=== PATIENT | female | born 1965 | race Caucasian/White ===

== ENCOUNTER 2022-01-08 10:25 | Outpatient (CLI) | payer BC, SELFPAY ==
--- NOTE | 2022-01-08 11:00 | CRLHL7_ITS ---
For Patients: As a result of the Century Cures Act, medical imaging exams and procedure reports are released immediately into your electronic medical record. You may view this report before your referring provider. If you have questions, please contact your health care provider. CLINICAL HISTORY: Postmenopausal bleeding TECHNIQUE: Real time, grimes scale images were acquired of the pelvis using a transabdominal and transvaginal approach. Color Doppler analysis was performed of the ovaries. FINDINGS: Uterus measures 6.3 x 3.1 x 3.9 centimeters endometrium is thickened measuring 1.7 cm. There is hyperechoic rounded area near the fundus measuring approximately 2.1 centimeters the endometrium is heterogeneous in appearance. This raises the possibility of a polyp. Ovaries are unremarkable. The right ovary measures 2.7 x 1.4 x 2 centimeters left ovary measures 2.6 x 1.6 x 1.7 cm. IMPRESSION: 1. Thickened endometrium measuring 1.7 centimeters heterogeneous appearance to the endometrium with rounded hyperechoic area near the fundus measuring 2.1 centimeters which raises possibility of a polyp. Dictated by Vero Gonzales MD @ 01/10/2022 8:06:30 PM (Electronically Signed)
== END 2022-01-08 10:26 | disposition home or self-care (01) ==
LOC: US 10:26
PROVIDERS: PCP Emergency Medicine; Visit Provider Obstetrics & Gynecology
DX: N95.0 Postmenopausal bleeding (principal); R93.89 Abnormal findings on diagnostic imaging of other specified body structures
CPT/HCPCS: 76830; 76856

== ENCOUNTER 2022-02-15 10:22 | Outpatient (CLI) | payer BC, SELFPAY | END 2022-02-15 10:23 | disposition home or self-care (01) | LOC: LKVREF 02-17 09:07 | PROVIDERS: PCP Emergency Medicine; Visit Provider Family Medicine | DX: R50.9 Fever, unspecified (principal); R05.9 Cough, unspecified; R30.0 Dysuria | CPT/HCPCS: 87086; 87186 ==

== ENCOUNTER 2022-04-20 10:50 | Outpatient (CLI) | payer BC, SELFPAY | END 2022-04-20 10:51 | disposition home or self-care (01) | LOC: NFLDREF 04-22 14:02 | PROVIDERS: PCP Emergency Medicine; Referring Provider Emergency Medicine; Visit Provider Physician Assistant Medical | DX: N39.0 Urinary tract infection, site not specified (principal) | CPT/HCPCS: 87086; 87186 ==

== ENCOUNTER 2022-05-13 11:33 | Outpatient (CLI) | payer BC, SELFPAY | END 2022-05-13 11:34 | disposition home or self-care (01) | LOC: LKVREF 11:34 | PROVIDERS: PCP Emergency Medicine; Visit Provider Emergency Medicine | DX: Z01.818 Encounter for other preprocedural examination (principal); N30.90 Cystitis, unspecified without hematuria | CPT/HCPCS: 80048; 87086 ==

== ENCOUNTER 2022-05-28 09:44 | Outpatient (CLI) | payer BC, SELFPAY ==
--- NOTE | 2022-05-28 11:25 | W.ANESCHARGE ---
Anesthesia Charges Start Date/Time Anesthesia Start Date: 05/28/22 Anesthesia Start Time: 10:45 Stop Date/Time Anesthesia Stop Date: 05/28/22 Anesthesia Stop Time: 11:12
--- NOTE | 2022-05-28 11:39 | W.ANESCHARGE ---
Anesthesia Charges Start Date/Time Anesthesia Start Date: 05/28/22 Anesthesia Start Time: 10:45 Stop Date/Time Anesthesia Stop Date: 05/28/22 Anesthesia Stop Time: 11:12
== END 2022-05-28 09:45 | disposition home or self-care (01) ==
PROVIDERS: PCP Emergency Medicine; Visit Provider Internal Medicine
DX: Z12.11 Encounter for screening for malignant neoplasm of colon (principal); K63.5 Polyp of colon
CPT/HCPCS: 00811; 45380; 88305

== ENCOUNTER 2022-08-02 12:20 | Outpatient (CLI) | payer BC, SELFPAY | END 2022-08-02 12:21 | disposition home or self-care (01) | LOC: NFLDREF 08-03 16:11 | PROVIDERS: PCP Emergency Medicine; Referring Provider Emergency Medicine; Visit Provider Nurse Practitioner Family | DX: R30.0 Dysuria (principal); N39.0 Urinary tract infection, site not specified | CPT/HCPCS: 87086; 87186 ==

== ENCOUNTER 2022-10-11 13:13 | Emergency (ER) | payer BC, SELFPAY ==
[2022-10-11 13:23] VITALS: BP 134/85; PULSE 80; RESP 18; TEMP 36.2; O2SAT 94; BMI 45.0
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
[2022-10-11] MEDS: HYDROCODONE-ACETAMIN 5-325 MG 1 TAB PO (14:17)
[2022-10-11] MEDS: CYCLOBENZAPRINE HCL 10 MG TABLET PO (14:17)
== END 2022-10-11 14:27 | disposition home or self-care (01) ==
LOC: ED 14:09
PROVIDERS: Emergency Provider Emergency Medicine; PCP Emergency Medicine
DX: M54.12 Radiculopathy, cervical region (principal)
CPT/HCPCS: 99283; A9270

== ENCOUNTER 2022-11-11 14:57 | Outpatient (CLI) | payer BC, SELFPAY ==
--- NOTE | 2022-11-11 15:00 | CRLHL7_ITS ---
For Patients: As a result of the Century Cures Act, medical imaging exams and procedure reports are released immediately into your electronic medical record. You may view this report before your referring provider. If you have questions, please contact your health care provider. INDICATION: NON TOXIC THYROID NODULE, enlarged thyroid on outside MRI COMPARISON: None TECHNIQUE: Ayala scale and color Doppler images were acquired of the thyroid gland. FINDINGS: The thyroid gland demonstrates diffuse heterogeneous echogenicity and has a smooth outer contour. The right lobe measures 10.6 x 3.4 x 3.3 cm and the left lobe measures 8.8 x 3.0 x 3.5 cm in size. There are no suspicious masses or nodules. The color Doppler images demonstrate normal vascularity. There is no evidence of cervical lymphadenopathy or parathyroid mass. IMPRESSION: Diffusely enlarged and heterogeneous thyroid gland without dominant or suspicious nodule. Dictated by Hilton Navarro MD @ 11/11/2022 3:58:02 PM (Electronically Signed)
== END 2022-11-11 14:58 | disposition home or self-care (01) ==
LOC: US 14:57
PROVIDERS: PCP Emergency Medicine; Visit Provider Emergency Medicine
DX: E04.1 Nontoxic single thyroid nodule (principal)
CPT/HCPCS: 76536

== ENCOUNTER 2022-11-17 10:06 | Outpatient (CLI) | payer BC, SELFPAY | END 2022-11-17 10:07 | disposition home or self-care (01) | LOC: NFLDREF 11-19 05:48 | PROVIDERS: PCP Emergency Medicine; Referring Provider Emergency Medicine; Visit Provider Emergency Medicine | DX: E04.9 Nontoxic goiter, unspecified (principal); Z01.818 Encounter for other preprocedural examination | CPT/HCPCS: 84439; 84443; 84480; 86376 ==

== ENCOUNTER 2022-12-08 10:48 | Outpatient (CLI) | payer BC, SELFPAY | END 2022-12-08 10:49 | disposition home or self-care (01) | PROVIDERS: PCP Emergency Medicine; Visit Provider Emergency Medicine | DX: R73.03 Prediabetes (principal); R39.15 Urgency of urination; E55.9 Vitamin D deficiency, unspecified; E04.1 Nontoxic single thyroid nodule; Z13.6 Encounter for screening for cardiovascular disorders | CPT/HCPCS: 80048; 82306; 87086 ==

== ENCOUNTER 2023-01-06 09:33 | Outpatient (CLI) | payer BC, SELFPAY | END 2023-01-06 09:34 | disposition home or self-care (01) | PROVIDERS: PCP Emergency Medicine; Visit Provider Emergency Medicine | DX: R39.15 Urgency of urination (principal); Z13.220 Encounter for screening for lipoid disorders; K76.0 Fatty (change of) liver, not elsewhere classified; R73.03 Prediabetes | CPT/HCPCS: 80053; 80061; 87086; 87186 ==

== ENCOUNTER 2023-01-19 19:03 | Outpatient (CLI) | payer BC, SELFPAY ==
--- NOTE | 2023-01-25 12:26 | W.PM.SLEEP ---
Sleep Study Details Details Interpreting Provider: Alvarado Date of Sleep Study: 01/19/23 Sleep Study Details: STUDY TYPE:? Home unattended ? BMI:? 45.6 ORDERING PROVIDER:Roxanna Jovel INDICATION:? Concerns about sleep apnea ? SLEEP SUMMARY:? 497 minutes monitored RESPIRATORY SUMMARY:? AHI 59.4. Majority of study was in the supine position Low oxygen 69 47.6% of study oxygen less than 90% Snoring 28% PERIODIC LIMB MOVEMENTS OF SLEEP:? Not recorded during home study CARDIAC:? Range 19-107, mean 79.1 IMPRESSION:? Severe obstructive sleep apnea with significant hypo oxygenation, bradycardia was also noted with a heart rate as low as 19 during sleep and during time in bed. Would recommend an in-lab titration for this patient. I would also recommend that she see Dr. Jovel for potential further cardiac evaluation. Once effective CPAP therapy is established patient should have an overnight oximetry study performed. She has a risk for obesity hypoventilation. RECOMMENDATION: []
== END 2023-01-19 19:04 | disposition home or self-care (01) ==
PROVIDERS: PCP Emergency Medicine; Visit Provider Emergency Medicine
DX: G47.33 Obstructive sleep apnea (adult) (pediatric) (principal)
CPT/HCPCS: 95806

== ENCOUNTER 2023-02-05 19:00 | Emergency (ER) | payer BC, SELFPAY ==
[2023-02-05 19:18] VITALS: BP 145/78; PULSE 115; RESP 18; TEMP 37.2; O2SAT 96; BMI 45.0
[2023-02-05 20:08] LABS: PCR FLU A Negative PCR FLU A (Negative); PCR FLU B Negative PCR FLU B (Negative); PCR RSV Negative PCR RSV (Negative)
[2023-02-05 20:10] LABS: SARS PCR* POSITIVE SARS-CoV-2 (Negative)
--- NOTE | 2023-02-05 21:24 | ED.GENADULT ---
HPI - General Adult General Date Seen: 02/05/23 Chief complaint: Cough Stated complaint: Fever, Cough Time Seen by Provider: 02/05/23 20:45 History of Present Illness HPI narrative: This is a pleasant 57-year-old female with a past medical history of cervical radiculopathy and recent cervical spine decompression surgery, also past history of mild intermittent asthma, overweight, bradycardia, thyroid disease, previous uterine cancers status post RAUL/BSO and radiation (years ago, in remission). Who presents to the ER today for evaluation of cough, nasal congestion, headache, fever. Her mother is currently in the hospital with COVID. Patient developed symptoms 2 days ago on with a mild sore throat. Since then she has also developed nasal congestion, cough (largely nonproductive, small amounts of ?slime?). She has some pleuritic pain when she coughs but no other pleuritic pain. She is not short of breath. She does not feel wheezy like she is having asthma. No vomiting or diarrhea. No rashes. She had an at home COVID test yesterday and today that were both negative. Today she began to spike fevers and have worsening body aches and headache so came here to the ER. She is previously vaccinated and recently boosted against coronavirus. Mother is positive for COVID and currently in the hospital. Related Data Home Medications Medication Instructions Recorded Confirmed acetaminophen 500 mg tablet 500 mg PO PRN 12/23/21 10/14/22 clobetasol 0.05 % topical cream 1 applic topical QDAY 12/23/21 10/14/22 diphenhydramine HCl 25 mg tablet 25 mg PO ONCE 12/23/21 10/14/22 omeprazole 20 mg capsule,delayed 20 mg PO DAILY 12/23/21 10/14/22 release sumatriptan succinate 100 mg tablet mg PO .As Needed PRN 12/23/21 10/14/22 albuterol sulfate 90 mcg/actuation 2 puff inhalation Q6H PRN 02/15/22 10/14/22 aerosol inhaler (Ventolin HFA) estradiol 0.01% (0.1 mg/gram) vaginal 10/06/22 10/14/22 vaginal cream oxycodone 5 mg tablet 5 mg PO Q4H PRN pain 01/06/23 01/06/23 Previous Rx's Medication Instructions Recorded zolpidem 6.25 mg tablet,extended 6.25 mg PO QHS PRN insomnia #30 01/26/22 release,multiphase (Ambien CR) tabs epinephrine 0.3 mg/0.3 mL 0.3 mg (0.3 mL) IM .As Needed as 05/13/22 injection, auto-injector needed PRN anaphylaxis #2 ea nystatin 100,000 unit/gram topical 1 applic topical BID PRN rash #30 05/13/22 powder grams cyclobenzaprine 10 mg tablet 10 mg PO TID PRN muscle spasm #30 10/14/22 tabs tramadol 50 mg tablet 50 mg PO TID PRN pain #10 tabs 10/29/22 ergocalciferol (vitamin D2) 1,250 1,250 mcg PO QWEEK #8 caps 12/09/22 mcg (50,000 unit) capsule (Vitamin D2) ciprofloxacin HCl 250 mg tablet 250 mg PO BID #10 tabs 01/06/23 (Cipro) lorazepam 0.5 mg tablet (Ativan) 0.5 - 1 mg (1 - 2 x 0.5 mg) PO BID 01/06/23 PRN anxiety #30 tabs nirmatrelvir 300 mg (150 mg See Rx Instructions PO .COMPLEX 02/05/23 x2)-ritonavir 100 mg tablet,dose #30 ea pack (Paxlovid) Allergies Allergy/AdvReac Type Severity Reaction Status Date / Time cefuroxime Allergy Severe Anaphylaxis Verified 01/06/23 09:13 penicillin G Allergy Intermediate Hives Verified 01/06/23 09:13 Quinolones Allergy Intermediate rash Verified 01/06/23 13:58 azithromycin Allergy Mild Hives Verified 01/06/23 09:13 codeine Allergy Unknown Unknown Verified 01/06/23 09:13 Sulfa Antibiotics Allergy Mild Rash Uncoded 01/06/23 09:13 EES Allergy Unknown Uncoded 01/06/23 09:13 [facility] Medical History (Updated 02/05/23 @ 21:05 by Gustavo Brizuela MD) Bradycardia ?R00.1 - Bradycardia, unspecified (ICD-10) Screening for hyperlipidemia ?Z13.220 - Encounter for screening for lipoid disorders (ICD-10) Snoring ?R06.83 - Snoring (ICD-10) Apnea ?R06.81 - Apnea, not elsewhere classified (ICD-10) Urinary urgency ?R39.15 - Urgency of urination (ICD-10) Vitamin D deficiency ?E55.9 - Vitamin D deficiency, unspecified (ICD-10) Linda's thyroiditis ?E06.3 - Autoimmune thyroiditis (ICD-10) Thyroid goiter ?E04.9 - Nontoxic goiter, unspecified (ICD-10) Thyroid nodule ?E04.1 - Nontoxic single thyroid nodule (ICD-10) Uterine cancer ?C55 - Malignant neoplasm of uterus, part unspecified (ICD-10) Migraine with aura ?G43.109 - Migraine with aura, not intractable, without status migrainosus (ICD-10) Hemifacial spasm of left side of face ?G51.32 - Clonic hemifacial spasm, left (ICD-10) Former smoker ?Z87.891 - Personal history of nicotine dependence (ICD-10) Intertriginous dermatitis associated with moisture ?L30.4 - Erythema intertrigo (ICD-10) Psoriasis ?L40.9 - Psoriasis, unspecified (ICD-10) Eczema ?L30.9 - Dermatitis, unspecified (ICD-10) Pre-op exam ?Z01.818 - Encounter for other preprocedural examination (ICD-10) Asthma ?J45.909 - Unspecified asthma, uncomplicated (ICD-10) Cystitis ?N30.90 - Cystitis, unspecified without hematuria (ICD-10) Accessory navicular bone of foot ?Q74.2 - Other congenital malformations of lower limb(s), including pelvic girdle (ICD-10) History of radiation therapy ?Z92.3 - Personal history of irradiation (ICD-10) Bronchitis ?J40 - Bronchitis, not specified as acute or chronic (ICD-10) Wheezing ?R06.2 - Wheezing (ICD-10) Panic attack ?F41.0 - Panic disorder [episodic paroxysmal anxiety] (ICD-10) Anxiety ?F41.9 - Anxiety disorder, unspecified (ICD-10) Pre-diabetes ?R73.03 - Prediabetes (ICD-10) Post-menopausal bleeding ?N95.0 - Postmenopausal bleeding (ICD-10) Screening for malignant neoplasm of cervix ?Z12.4 - Encounter for screening for malignant neoplasm of cervix (ICD-10) History of multiple spontaneous abortions ?N96 - Recurrent loss (ICD-10) Surgical History (Updated 05/13/22 @ 11:26 by Bertha Madison MD) H/O wrist surgery ?Z98.890 - Other specified postprocedural states (ICD-10) S/P RAUL-BSO ?Z90.710 - Acquired absence of both cervix and uterus (ICD-10) ?Z90.722 - Acquired absence of ovaries, bilateral (ICD-10) ?Z90.79 - Acquired absence of other genital organ(s) (ICD-10) Hx of total cystectomy (~1992) ?Z90.6 - Acquired absence of other parts of urinary tract (ICD-10) History of spinal fusion (~1998) ?Z98.1 - Arthrodesis status (ICD-10) History of kidney surgery (~1969) ?Z98.890 - Other specified postprocedural states (ICD-10) Family History (Updated 01/20/22 @ 16:04 by Esther Giles MD) Father Coronary artery disease Alcohol dependence Skin cancer High blood pressure Diabetes Brother Coronary artery disease Alcohol dependence Paternal Grandfather Coronary artery disease Skin cancer Paternal Grandmother Coronary artery disease Mother Stroke Thyroid disease High blood pressure Brother Alcohol dependence Sister Seizure disorder Maternal Grandmother Breast cancer Social History (Updated 12/08/22 @ 10:59 by Bertha Madison MD) Narrative: Cis-gender, heterosexual woman Relationship status:[Single Education: Associates degree Occupation: Manufacturing Area Manager Tobacco: : Former smoker quit 2013 E-cigarettes: No Alcohol: No Illicit/recreational drugs: No Safety concerns at home or work: No Dietary restriction(s): No Exercise: No Smoking Status: Never smoker Non-prescribed substance use: denies use Little interest or pleasure in doing things: more than half the days Feeling down, depressed, or hopeless: several days Exam Narrative: Exam Narrative: Constitutional: Appears well-developed and well-nourished. Alert. Conversant. Non toxic. HENT: Head: Atraumatic. Nose: Nose normal. Tympanic membranes normal. Mouth/Throat: Oral mucosa is clear and moist. no trismus. Pharynx normal. Tonsils symmetric. No tonsillar enlargement, erythema, or exudate. Eyes: Conjunctivae normal. EOM normal. Pupils equal, round, and reactive to light. No scleral icterus. Neck: Wearing a [place] J collar for her postoperative neck.. Neck supple. No tracheal deviation present. Cardiovascular: Normal rate, regular rhythm. No gallop. No friction rub. No murmur heard. Symmetric radial artery pulses Pulmonary/Chest: Occasional dry cough. Effort normal. No stridor. No respiratory distress. No wheezes. No rales. No rhonchi . No tenderness. Abdominal: Soft. No distension. No mass. No tenderness. No rebound. No guarding. Musculoskeletal: RUE: Normal range of motion. No tenderness. No deformity LUE: Normal range of motion. No tenderness. No deformity RLE: Normal range of motion. No edema. No tenderness. No deformity LLE: Normal range of motion. No edema. No tenderness. No deformity Lymph: No cervical adenopathy. Neurological: Alert and oriented to person, place, and time. Normal strength. CN II-VII intact. No sensory deficit. GCS eye subscore is 4. GCS verbal subscore is 5. GCS motor subscore is 6. Normal coordination Skin: Skin is warm and dry. No rash noted. No pallor. Normal capillary refill. Psychiatric: Normal mood. Normal affect. Const: Vital Signs, click to edit/add: Vital Signs - 24 hr 02/05/23 19:18 Temperature 98.9 F Pulse Rate [Left P ulse Oximeter] 115 H Respiratory Rate 18 Blood Pressure [Ri ght Upper Arm] 145/78 H Pulse Oximetry 96 Oxygen Delivery Me thod Room Air Course Vital Signs Vital signs: Initial Vital Signs Temperature 98.9 F 02/05/23 19:18 Temperature Source Temporal Artery Scan 02/05/23 19:18 Pulse Rate 115 H 02/05/23 19:18 Pulse Rhythm Regular 02/05/23 19:18 Respiratory Rate 18 02/05/23 19:18 Blood Pressure 145/78 H 02/05/23 19:18 Blood Pressure Mean 100 02/05/23 19:18 Blood Pressure Position Sitting 02/05/23 19:18 Pulse Oximetry 96 02/05/23 19:18 Oxygen Delivery Method Room Air 02/05/23 19:18 Vital Signs Temperature 98.9 F 02/05/23 19:18 Pulse Rate 115 H 02/05/23 19:18 Respiratory Rate 18 02/05/23 19:18 Blood Pressure 145/78 H 12/30/23 19:18 Pulse Oximetry 96 02/05/23 19:18 Oxygen Delivery Method Room Air 02/05/23 19:18 Temperature 98.9 F 02/05/23 19:18 Pulse Rate 115 H 02/05/23 19:18 Respiratory Rate 18 02/05/23 19:18 Blood Pressure 145/78 H 02/05/23 19:18 Pulse Oximetry 96 02/05/23 19:18 Oxygen Delivery Method Room Air 02/05/23 19:18 Medical Decision Making MDM Narrative Medical decision making narrative: This patient presents for evaluation of fever, headache, body aches, cough.. This is consistent with an upper respiratory tract infection. Viral testing positive for COVID but negative for influenza and RSV.. There is no signs at this point of serious bacterial infection such as OM, RPA, epiglottitis, ORTHOPEDIC PHYSICIAN ASSISTANT, strep pharyngitis, pneumonia, sinusitis, meningitis, bacteremia, serious bacterial infection. Given clear lungs, fever curve, no hypoxia and no respiratory distress I do not feel a CXR is indicated at this point as the probability of bacterial pneumonia is very unlikely. There are no significant gastrointestinal symptoms at this point and no signs of dehydration. She is vaccinated but does have chronic illnesses including asthma, overweight which put her in a ?high risk? category for coronavirus. She is currently on day 3 of illness. I think she would qualify for Paxlovid. Although she has an extensive medication list in the computer CT she is actually only currently taking acetaminophen and oxycodone. I reviewed the Paxlovid medication interactions. There is a potential week interaction between oxycodone and Paxlovid that might slow oxycodone metabolism. Discussed this wrist with the patient and her daughter. We think that the overall benefit of Paxlovid is clearly worth the risk. She will monitor carefully when taking oxycodone. She typically only takes 1 dose [address]time [address]. Recent labs from earlier this month showed normal kidney function. She has been drinking enough and staying hydrated and putting out normal amounts of urine lately. I do not think she needs repeat labs. Recent GFR would be high enough to qualify for the typical dose of Paxlovid. Precautions for return to the ER reviewed. Questions answered Close followup with primary care physician is indicated. Lab Data Labs: Lab Results 02/05/23 Range/Units 19:25 SARS-CoV-2 (PCR) POSITIVE SARS-CoV-2 A (Negative) Influenza Type A (PCR) Negative PCR FLU A (Negative) Influenza Type B (PCR) Negative PCR FLU B (Negative) RSV (PCR) Negative PCR RSV (Negative) Discharge Plan Discharge Clinical Impression: COVID-19 Patient Disposition: Home, Self-Care Condition: Stable Instructions: COVID-19 (Coronavirus Disease 2019) (ED), COVID-19: Slow the Coronavirus Spread (ED), How to Recover from COVID-19 at Home (ED) Additional Instructions: As we discussed, please come back to the ER right away if you have worsening cough, worsening trouble breathing, oxygen measurements below 90%, uncontrolled vomiting or dehydration, weakness, confusion, or if you have any concerns. Prescriptions: New Paxlovid 300 mg (150 mg x 2)-100 mg tablets,dose pack See Rx Instructions .ROUTE .COMPLEX Qty: 30 0RF Rx Instructions: take TWO 150 mg tablets of nirmatrelvir with ONE 100 mg tablet of ritonavir twice daily for 5 days No Action zolpidem [Ambien CR] 6.25 mg tablet,ext release multiphase 6.25 mg PO QHS PRN (Reason: insomnia) Qty: 30 0RF estradiol 0.01 % (0.1 mg/gram) cream vaginal cyclobenzaprine 10 mg tablet 10 mg PO TID PRN (Reason: muscle spasm) Qty: 30 3RF oxycodone 5 mg tablet 5 mg PO Q4H PRN (Reason: pain) lorazepam [Ativan] 0.5 mg tablet 0.5 - 1 mg PO BID MDD 1mg PRN (Reason: anxiety) Qty: 30 0RF clobetasol 0.05 % cream 1 applic topical QDAY omeprazole 20 mg capsule,delayed release(DR/EC) 20 mg PO DAILY diphenhydramine HCl 25 mg tablet 25 mg PO ONCE acetaminophen 500 mg tablet 500 mg PO PRN Rx Instructions: NO MORE THAN 4000 MG/DAY sumatriptan succinate 100 mg tablet PO .As Needed PRN Rx Instructions: ONE TAB AT ONSET OF HEADACHE, MAY REPEAT ONCE IN 2 HRS, MAX 200 MG/24 HRS albuterol sulfate [Ventolin HFA] 90 mcg/actuation HFA aerosol inhaler 2 puff inhalation Q6H PRN epinephrine 0.3 mg/0.3 mL auto-injector 0.3 mg IM .As Needed as needed PRN (Reason: anaphylaxis) Qty: 2 0RF nystatin 100,000 unit/gram powder 1 applic topical BID PRN (Reason: rash) Qty: 30 3RF tramadol 50 mg tablet 50 mg PO TID PRN (Reason: pain) Qty: 10 0RF ergocalciferol (vitamin D2) [Vitamin D2] 1,250 mcg (50,000 unit) capsule 1,250 mcg PO QWEEK Qty: 8 0RF ciprofloxacin HCl [Cipro] 250 mg tablet 250 mg PO BID Qty: 10 0RF Follow Up/Referrals: Bertha Madison MD [Primary Care Provider] - Stand Alone Forms: [employer] Info Instructions
[2023-02-05 21:26] VITALS: BP 129/83; PULSE 89; RESP 18; TEMP 38.2; O2SAT 94
--- NOTE | 2023-02-05 21:34 | PC.NURSE ---
patient DC, RR even and unlabored. ambulatory. no further questions about DC instructions.
== END 2023-02-05 21:32 | disposition home or self-care (01) ==
LOC: ED 21:20
PROVIDERS: Emergency Provider Emergency Medicine; PCP Emergency Medicine
DX: U07.1 COVID-19 (principal)
CPT/HCPCS: 87631; 99282; 99283

== ENCOUNTER 2023-02-08 11:27 | Emergency (ER) | payer BC, SELFPAY ==
[2023-02-08 11:31] VITALS: BP 172/103; PULSE 83; RESP 18; TEMP 35.9; O2SAT 95; BMI 45.0
--- NOTE | 2023-02-08 12:00 | ED_ITS ---
HPI - General Adult General Date Seen: 02/08/23 Chief complaint: Cough Stated complaint: Covid+, lumps in throat Time Seen by Provider: 02/08/23 11:37 Source: patient Mode of arrival: ambulatory Limitations: no limitations History of Present Illness HPI narrative: Patient is a 57 year old female with a history of uterine cancer presenting to the emergency department for white spots in the back of her throat, sore throat, hemoptysis. She is diagnosed with COVID a few days ago and was started on Paxlovid. She spoke to her clinics office today to set up the follow-up appointment because of the hemoptysis and was told to come to the emergency department. She states she knows few white spots in the back of her throat and on her tongue along with noticing she is coughing up base very small amount of blood. States her chest pain and shortness of breath the not any different than previously. Does feel fatigued muscle aches but this has been going for few days and started right before she was diagnosed with COVID. Denies weakness, numbness, headache, vision changes, abdominal pain, diarrhea, constipation. No other concerns noted. Denies history of blood clots, unilateral leg swelling. Related Data Home Medications Medication Instructions Recorded Confirmed acetaminophen 500 mg tablet 500 mg PO PRN 12/23/21 10/14/22 clobetasol 0.05 % topical cream 1 applic topical QDAY 12/23/21 10/14/22 diphenhydramine HCl 25 mg tablet 25 mg PO ONCE 12/23/21 10/14/22 omeprazole 20 mg capsule,delayed 20 mg PO DAILY 12/23/21 10/14/22 release sumatriptan succinate 100 mg tablet mg PO .As Needed PRN 12/23/21 10/14/22 albuterol sulfate 90 mcg/actuation 2 puff inhalation Q6H PRN 02/15/22 10/14/22 aerosol inhaler (Ventolin HFA) estradiol 0.01% (0.1 mg/gram) vaginal 10/06/22 10/14/22 vaginal cream oxycodone 5 mg tablet 5 mg PO Q4H PRN pain 01/06/23 01/06/23 Previous Rx's Medication Instructions Recorded zolpidem 6.25 mg tablet,extended 6.25 mg PO QHS PRN insomnia #30 01/26/22 release,multiphase (Ambien CR) tabs epinephrine 0.3 mg/0.3 mL 0.3 mg (0.3 mL) IM .As Needed as 05/13/22 injection, auto-injector needed PRN anaphylaxis #2 ea nystatin 100,000 unit/gram topical 1 applic topical BID PRN rash #30 05/13/22 powder grams cyclobenzaprine 10 mg tablet 10 mg PO TID PRN muscle spasm #30 10/14/22 tabs tramadol 50 mg tablet 50 mg PO TID PRN pain #10 tabs 10/29/22 ergocalciferol (vitamin D2) 1,250 1,250 mcg PO QWEEK #8 caps 12/09/22 mcg (50,000 unit) capsule (Vitamin D2) ciprofloxacin HCl 250 mg tablet 250 mg PO BID #10 tabs 01/06/23 (Cipro) lorazepam 0.5 mg tablet (Ativan) 0.5 - 1 mg (1 - 2 x 0.5 mg) PO BID 01/06/23 PRN anxiety #30 tabs nirmatrelvir 300 mg (150 mg See Rx Instructions PO .COMPLEX 02/05/23 x2)-ritonavir 100 mg tablet,dose #30 ea pack (Paxlovid) Allergies Allergy/AdvReac Type Severity Reaction Status Date / Time cefuroxime Allergy Severe Anaphylaxis Verified 01/06/23 09:13 penicillin G Allergy Intermediate Hives Verified 01/06/23 09:13 Quinolones Allergy Intermediate rash Verified 01/06/23 13:58 azithromycin Allergy Mild Hives Verified 01/06/23 09:13 codeine Allergy Unknown Unknown Verified 01/06/23 09:13 Sulfa Antibiotics Allergy Mild Rash Uncoded 01/06/23 09:13 EES Allergy Unknown Uncoded 01/06/23 09:13 Review of Systems Status of ROS: Reports: 10 or more systems reviewed and unremarkable except as noted in History and below [facility] Medical History (Updated 02/08/23 @ 14:28 by Alfonso Pearl DO) Bradycardia ?R00.1 - Bradycardia, unspecified (ICD-10) Screening for hyperlipidemia ?Z13.220 - Encounter for screening for lipoid disorders (ICD-10) Snoring ?R06.83 - Snoring (ICD-10) Apnea ?R06.81 - Apnea, not elsewhere classified (ICD-10) Urinary urgency ?R39.15 - Urgency of urination (ICD-10) Vitamin D deficiency ?E55.9 - Vitamin D deficiency, unspecified (ICD-10) Linda's thyroiditis ?E06.3 - Autoimmune thyroiditis (ICD-10) Thyroid goiter ?E04.9 - Nontoxic goiter, unspecified (ICD-10) Thyroid nodule ?E04.1 - Nontoxic single thyroid nodule (ICD-10) Uterine cancer ?C55 - Malignant neoplasm of uterus, part unspecified (ICD-10) Migraine with aura ?G43.109 - Migraine with aura, not intractable, without status migrainosus (ICD-10) Hemifacial spasm of left side of face ?G51.32 - Clonic hemifacial spasm, left (ICD-10) Former smoker ?Z87.891 - Personal history of nicotine dependence (ICD-10) Intertriginous dermatitis associated with moisture ?L30.4 - Erythema intertrigo (ICD-10) Psoriasis ?L40.9 - Psoriasis, unspecified (ICD-10) Eczema ?L30.9 - Dermatitis, unspecified (ICD-10) Pre-op exam ?Z01.818 - Encounter for other preprocedural examination (ICD-10) Asthma ?J45.909 - Unspecified asthma, uncomplicated (ICD-10) Cystitis ?N30.90 - Cystitis, unspecified without hematuria (ICD-10) Accessory navicular bone of foot ?Q74.2 - Other congenital malformations of lower limb(s), including pelvic girdle (ICD-10) History of radiation therapy ?Z92.3 - Personal history of irradiation (ICD-10) Bronchitis ?J40 - Bronchitis, not specified as acute or chronic (ICD-10) Wheezing ?R06.2 - Wheezing (ICD-10) Panic attack ?F41.0 - Panic disorder [episodic paroxysmal anxiety] (ICD-10) Anxiety ?F41.9 - Anxiety disorder, unspecified (ICD-10) Pre-diabetes ?R73.03 - Prediabetes (ICD-10) Post-menopausal bleeding ?N95.0 - Postmenopausal bleeding (ICD-10) Screening for malignant neoplasm of cervix ?Z12.4 - Encounter for screening for malignant neoplasm of cervix (ICD-10) History of multiple spontaneous abortions ?N96 - Recurrent loss (ICD-10) Surgical History (Updated 05/13/22 @ 11:26 by Bertha Madison MD) H/O wrist surgery ?Z98.890 - Other specified postprocedural states (ICD-10) S/P RAUL-BSO ?Z90.710 - Acquired absence of both cervix and uterus (ICD-10) ?Z90.722 - Acquired absence of ovaries, bilateral (ICD-10) ?Z90.79 - Acquired absence of other genital organ(s) (ICD-10) Hx of total cystectomy (~1992) ?Z90.6 - Acquired absence of other parts of urinary tract (ICD-10) History of spinal fusion (~1998) ?Z98.1 - Arthrodesis status (ICD-10) History of kidney surgery (~1969) ?Z98.890 - Other specified postprocedural states (ICD-10) Family History (Updated 01/20/22 @ 16:04 by Esther Giles MD) Father Coronary artery disease Alcohol dependence Skin cancer High blood pressure Diabetes Brother Coronary artery disease Alcohol dependence Paternal Grandfather Coronary artery disease Skin cancer Paternal Grandmother Coronary artery disease Mother Stroke Thyroid disease High blood pressure Brother Alcohol dependence Sister Seizure disorder Maternal Grandmother Breast cancer Social History (Updated 12/08/22 @ 10:59 by Bertha Madison MD) Narrative: Cis-gender, heterosexual woman Relationship status:[Single Education: Associates degree 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 Moist mucous membranes. Neck: Symmetric, trachea midline, No thyromegaly. CVS: RRR, No murmurs or gallops. Peripheral pulses 2+ and equal in all extremities RESP: Unlabored respiratory effort. Clear to auscultation bilaterally. GI: Nontender/Nondistended, No rebound or guarding. MSK:Extremities w/o deformity, Normal Active ROM Skin: Warm, Dry. No rashes or lesions. Neuro: Normal Muscle tone, No focal neurological deficits. Psych: Awake, Alert, & Oriented x3. Appropriate mood and affect. Const: Vital Signs, click to edit/add: Vital Signs - 24 hr 02/08/23 11:31 Temperature 96.7 F L Pulse Rate [Pulse Oximeter] 83 Respiratory Rate 18 Blood Pressure [Ri ght Forearm] 172/103 H Pulse Oximetry 95 Oxygen Delivery Me thod Room Air Course Vital Signs Vital signs: Initial Vital Signs Temperature 96.7 F L 02/08/23 11:31 Temperature Source Temporal Artery Scan 02/08/23 11:31 Pulse Rate 83 02/08/23 11:31 Respiratory Rate 18 02/08/23 11:31 Blood Pressure 172/103 H 02/08/23 11:31 Blood Pressure Mean 126 H 02/08/23 11:31 Blood Pressure Position Supine 02/08/23 11:31 Pulse Oximetry 95 02/08/23 11:31 Oxygen Delivery Method Room Air 02/08/23 11:31 Vital Signs Temperature 96.7 F L 02/08/23 11:31 Pulse Rate 83 02/08/23 11:31 Respiratory Rate 18 02/08/23 11:31 Blood Pressure 172/103 H 02/08/23 11:31 Pulse Oximetry 95 02/08/23 11:31 Oxygen Delivery Method Room Air 02/08/23 11:31 Temperature 96.7 F L 02/08/23 11:31 Pulse Rate 83 02/08/23 11:31 Respiratory Rate 18 02/08/23 11:31 Blood Pressure 172/103 H 02/08/23 11:31 Pulse Oximetry 95 02/08/23 11:31 Oxygen Delivery Method Room Air 02/08/23 11:31 Medications Administered Medications: Discontinued Medications Generic Name Dose Route Start Last Admin Trade Name Freq PRN Reason Stop Dose Admin Dexamethasone 10 mg 02/08/23 11:52 02/08/23 12:36 Dexamethasone 4 Mg Tablet PO 02/08/23 11:53 10 mg ONCE ONE Administration Medical Decision Making MDM Narrative Medical decision making narrative: Patient is a 57-year-old female presenting to the emergency department for multiple symptoms. She does have COVID every think she is dealing with can be explained by the COVID. She did have a tonsillectomy but we will do a strep test make she does not also have strep. Decadron were given for her sore throat. While are symptoms are likely from COVID consider history of cancer with the hemoptysis and COVID I cannot completely rule out a PE at this time so will order a D-dimer. Since she is here will also check ACS rule out. Patient's lab work returned showing no concerning abnormalities. D-dimer within normal limits unlikely to be a PE. Troponin within normal limits. EKG shows no concerning findings. She is strep negative. We will do a CT scan of her chest to look for signs of pneumonia as chest x-ray has a higher risk of missing a possible pneumonia. I do not believe we need any neck imaging as she is showing no signs of airway compromise and neck spaces abscesses are unlikely. CT scan returned showing signs of COVID but no obvious bacterial pneumonias. She is otherwise doing well at this time will be discharged home. Lab Data Labs: Lab Results 02/08/23 Range/Units 12:30 WBC 5.23 (4.50-11.00) K/uL RBC 4.75 (4.00-5.20) m/uL Hgb 14.7 (12.0-16.0) gm/dL Hct 43.7 (33.0-51.0) % MCV 92 (80-100) fL MCH 31 (26-34) pg MCHC 34 (32-36) gm/dL RDW Coeff of Santy 12.6 (11.5-15.5) % Plt Count 241 (140-440) K/uL Neut % (Auto) 45.0 (42.0-72.0) % Lymph % (Auto) 35.8 (20-44) % [place] % (Auto) 15.3 H (0.0-11.0) % Eos % (Auto) 3.1 (0.0-7.0) % Baso % (Auto) 0.8 (0.0-3.0) % Neut # (Auto) 2.36 (1.7-7.0) K/uL Lymph # (Auto) 1.87 (0.90-2.90) K/uL [place] # (Auto) 0.80 (0.00-0.90) K/UL Eos # (Auto) 0.16 (0.00-0.50) K/uL Baso # (Auto) 0.04 (0.00-0.30) K/uL Abs Immat Gran (auto) 0.00 (0.00-0.30) K/uL Imm/Tot Granulo (auto) 0.0 % D-Dimer Quant (PE/DVT) 0.29 (0.00-0.50) ug/ml Sodium 140 (135-149) mmol/L Potassium 3.6 (3.6-5.1) mmol/L Chloride 105 (96-114) mmol/L Carbon Dioxide 26 (20-32) mmol/L Anion Gap 9 (7-15) mEq/L BUN 11 (7-30) mg/dL Creatinine 0.5 (0.5-1.5) mg/dL Estimated Creat Clear 123.72 Estimated GFR 109 ml/min Glucose 113 (60-115) mg/dL Calcium 8.6 (8.4-10.6) mg/dL Troponin I < 0.01 L (0.01-0.04) ng/mL Group A Strep DNA NOT DETECTED (Not Detectd) Imaging Data Chest x-ray: Radiologist's impression: Few opacities in the lingula consistent with a history of Covid. Please note that all CT scans at this facility use dose modulation, iterative reconstruction, and/or weight-based dosing when appropriate to reduce radiation dose to as low as reasonably achievable. Dictated by Fide Ott MD @ 02/08/2023 2:13:24 PM ECG Data Attestation: I personally reviewed and interpreted this ECG as follows: Prior ECG tracings: not available for review Interpretation: Normal sinus rhythm with a rate of 81 beats per minute, normal intervals, normal axis, no ST or T-wave abnormalities Discharge Plan Discharge Clinical Impression: COVID Patient Disposition: Home, Self-Care Condition: Stable Instructions: COVID-19 (Coronavirus Disease 2019) (ED) Additional Instructions: Follow-up with your primary care provider if symptoms persist. Return to emergency department for new or worsening symptoms Prescriptions: No Action zolpidem [Ambien CR] 6.25 mg tablet,ext release multiphase 6.25 mg PO QHS PRN (Reason: insomnia) Qty: 30 0RF estradiol 0.01 % (0.1 mg/gram) cream vaginal cyclobenzaprine 10 mg tablet 10 mg PO TID PRN (Reason: muscle spasm) Qty: 30 3RF oxycodone 5 mg tablet 5 mg PO Q4H PRN (Reason: pain) lorazepam [Ativan] 0.5 mg tablet 0.5 - 1 mg PO BID MDD 1mg PRN (Reason: anxiety) Qty: 30 0RF clobetasol 0.05 % cream 1 applic topical QDAY omeprazole 20 mg capsule,delayed release(DR/EC) 20 mg PO DAILY diphenhydramine HCl 25 mg tablet 25 mg PO ONCE acetaminophen 500 mg tablet 500 mg PO PRN Rx Instructions: NO MORE THAN 4000 MG/DAY sumatriptan succinate 100 mg tablet PO .As Needed PRN Rx Instructions: ONE TAB AT ONSET OF HEADACHE, MAY REPEAT ONCE IN 2 HRS, MAX 200 MG/24 HRS albuterol sulfate [Ventolin HFA] 90 mcg/actuation HFA aerosol inhaler 2 puff inhalation Q6H PRN epinephrine 0.3 mg/0.3 mL auto-injector 0.3 mg IM .As Needed as needed PRN (Reason: anaphylaxis) Qty: 2 0RF nystatin 100,000 unit/gram powder 1 applic topical BID PRN (Reason: rash) Qty: 30 3RF Paxlovid 300 mg (150 mg x 2)-100 mg tablets,dose pack See Rx Instructions .ROUTE .COMPLEX Qty: 30 0RF Rx Instructions: take TWO 150 mg tablets of nirmatrelvir with ONE 100 mg tablet of ritonavir twice daily for 5 days tramadol 50 mg tablet 50 mg PO TID PRN (Reason: pain) Qty: 10 0RF ergocalciferol (vitamin D2) [Vitamin D2] 1,250 mcg (50,000 unit) capsule 1,250 mcg PO QWEEK Qty: 8 0RF ciprofloxacin HCl [Cipro] 250 mg tablet 250 mg PO BID Qty: 10 0RF Follow Up/Referrals: Bertha Madison MD [Primary Care Provider] - Stand Alone Forms: [facility] Info Instructions
[2023-02-08] MEDS: dexAMETHasone 4 MG TABLET 10 MG PO (12:36)
[2023-02-08 12:49] LABS: Basophils Absolute Auto 0.04 K/uL (0.00-0.30); Basophils Percent Auto 0.8 % (0.0-3.0); Eosinophils Absolute Auto 0.16 K/uL (0.00-0.50); Eosinophils Percent Auto 3.1 % (0.0-7.0); Hematocrit 43.7 % (33.0-51.0); Hemoglobin* 14.7 gm/dL (12.0-16.0); Lymphocytes Absolute Auto 1.87 K/uL (0.90-2.90); Lymphocytes Percent Auto 35.8 % (20-44); Mean Corpuscular HGB Conc 34 gm/dL (32-36); Mean Corpuscular Hemoglobin 31 pg (26-34); Mean Corpuscular Volume 92 fL (80-100); Monocytes Percent Auto 15.3 % (0.0-11.0); Neutrophils Absolute Auto 2.36 K/uL (1.7-7.0); Platelet Count* 241 K/uL (140-440); RDW Coefficient of Variation % 12.6 % (11.5-15.5); Red Blood Count 4.75 m/uL (4.00-5.20); White Blood Count* 5.23 K/uL (4.50-11.00)
[2023-02-08 13:05] LABS: Chloride* 105 mmol/L (96-114); Slide Review Reflex No; Sodium* 140 mmol/L (135-149)
[2023-02-08 13:06] LABS: Potassium* 3.6 mmol/L (3.6-5.1)
[2023-02-08 13:08] LABS: Anion Gap 9 mEq/L (7-15); Carbon Dioxide* 26 mmol/L (20-32); Creatinine* 0.5 mg/dL (0.5-1.5); Est. Creatinine Clearance* 123.72; Estimated Glomerular Filt Rate 109 ml/min
[2023-02-08 13:09] LABS: Blood Urea Nitrogen* 11 mg/dL (7-30); Calcium* 8.6 mg/dL (8.4-10.6); D Dimer Quantitative* 0.29 ug/ml (0.00-0.50); Glucose* 113 mg/dL (60-115)
[2023-02-08 13:15] LABS: Strep A DNA Probe* NOT DETECTED (Not Detectd)
[2023-02-08 13:21] LABS: Troponin I* < 0.01 ng/mL (0.01-0.04)
--- NOTE | 2023-02-08 13:21 | CRLHL7_ITS ---
For Patients: As a result of the Century Cures Act, medical imaging exams and procedure reports are released immediately into your electronic medical record. You may view this report before your referring provider. If you have questions, please contact your health care provider. INDICATION: Covid positive, short of breath COMPARISON: Chest radiograph 12/08/2022 TECHNIQUE: CT chest without contrast. Multiplanar axial, coronal, and sagittal reformats are included. Intravenous contrast: None FINDINGS: Lungs: Inspiratory phase imaging. Few patchy sub solid irregular opacities in the periphery of the lingula. Calcified granuloma in the left lower lobe with some immediately adjacent noncalcified micronodules. No consolidations. Normal appearance of the pulmonary interstitium. Pleura: No pleural effusion. No pneumothorax. Airway: Normal tracheobronchial tree. Lymph nodes: No thoracic adenopathy. Mediastinum: No pneumomediastinum. Heart and great vessels: No pericardial effusion. Normal cardiac chamber size. Few atherosclerotic plaques. No aortic aneurysm. Bones: No fractures. No focal bone lesions. Partially visualized cervical spine fusion hardware Chest wall: Normal. No masses. Upper abdomen: Cholelithiasis. IMPRESSION: Few opacities in the lingula consistent with a history of Covid. Please note that all CT scans at this facility use dose modulation, iterative reconstruction, and/or weight-based dosing when appropriate to reduce radiation dose to as low as reasonably achievable. Dictated by Fide Ott MD @ 02/08/2023 2:13:24 PM (Electronically Signed)
== END 2023-02-08 14:49 | disposition home or self-care (01) ==
PROVIDERS: Emergency Provider Student in an Organized Health Care Education/Training Program; PCP Emergency Medicine
DX: U07.1 COVID-19 (principal)
CPT/HCPCS: 36415; 71250; 80048; 84484; 85025; 85379; 87651; 93005; 99283; 99284; 99285; A9270

== ENCOUNTER 2023-02-14 09:27 | Outpatient (CLI) | payer BC, SELFPAY | END 2023-02-14 09:28 | disposition home or self-care (01) | LOC: NFLDREF 02-16 06:32 | PROVIDERS: PCP Emergency Medicine; Referring Provider Emergency Medicine; Visit Provider Physician Assistant Medical | DX: R35.0 Frequency of micturition (principal); N39.0 Urinary tract infection, site not specified; R11.0 Nausea; I10 Essential (primary) hypertension | CPT/HCPCS: 87086; 87186 ==

== ENCOUNTER 2023-03-11 13:02 | Outpatient (RCR) | payer BC, SELFPAY | END 2023-07-09 23:59 | disposition home or self-care (01) | PROVIDERS: PCP Emergency Medicine; Visit Provider Orthopaedic Surgery | DX: Z98.1 Arthrodesis status (principal); Z48.89 Encounter for other specified surgical aftercare; M47.22 Other spondylosis with radiculopathy, cervical region; M79.601 Pain in right arm; M54.2 Cervicalgia; Z74.09 Other reduced mobility; Z51.89 Encounter for other specified aftercare | CPT/HCPCS: 97012; 97110; 97161 ==

== ENCOUNTER 2023-09-21 11:53 | Outpatient (CLI) | payer BC, SELFPAY | END 2023-09-21 11:54 | disposition home or self-care (01) | LOC: LKVREF 11:55 | PROVIDERS: PCP Emergency Medicine; Visit Provider Emergency Medicine | DX: K62.5 Hemorrhage of anus and rectum (principal) | CPT/HCPCS: 85730 ==

== ENCOUNTER 2023-10-22 07:12 | Emergency (ER) | payer BC, SELFPAY ==
[2023-10-22 07:49] VITALS: BP 141/98; PULSE 91; RESP 20; TEMP 36.3; O2SAT 95; BMI 45.0
--- NOTE | 2023-10-22 08:23 | ED_ITS ---
HPI - General Adult General Date Seen: 10/22/23 Chief complaint: Headache/Migraine Stated complaint: covid home test positive, throat swollen, headache Time Seen by Provider: 10/22/23 08:02 Source: patient and RN notes reviewed Mode of arrival: ambulatory Limitations: no limitations History of Present Illness HPI narrative: Patient is a 58-year-old woman who describes herself as generally healthy. Her brother came down with COVID a few days ago, she started to feel poorly a couple of days ago, got home COVID test which was positive. She notes fatigue, headache, sore throat, aches. She is here because she would like to start on Paxlovid. She also says that this morning she was kind of gagging because of her sore throat. She wanted to have that looked at as well. She does note that she had COVID previously and says she waited too long and the sore throat really got bad. She has not had a fever. No shortness of breath this time. Denies a history of asthma, denies current medications. Does not smoke. Related Data Home Medications ?Medication ?Instructions ?Recorded ?Confirmed acetaminophen 500 mg tablet 500 mg PO PRN 12/23/21 09/21/23 clobetasol 0.05 % topical cream 1 applic topical QDAY 12/23/21 09/21/23 diphenhydramine HCl 25 mg tablet 25 mg PO ONCE 12/23/21 09/21/23 omeprazole 20 mg capsule,delayed 20 mg PO DAILY 12/23/21 09/21/23 release sumatriptan succinate 100 mg tablet mg PO .As Needed PRN 12/23/21 09/21/23 albuterol sulfate 90 mcg/actuation 2 puff inhalation Q6H PRN 02/15/22 09/21/23 aerosol inhaler (Ventolin HFA) estradiol 0.01% (0.1 mg/gram) vaginal 10/06/22 09/21/23 vaginal cream oxycodone 5 mg tablet 5 mg PO Q4H PRN pain 01/06/23 09/21/23 Previous Rx's ?Medication ?Instructions ?Recorded zolpidem 6.25 mg tablet,extended 6.25 mg PO QHS PRN insomnia #30 01/26/22 release,multiphase (Ambien CR) tabs epinephrine 0.3 mg/0.3 mL 0.3 mg (0.3 mL) IM .As Needed as 05/13/22 injection, auto-injector needed PRN anaphylaxis #2 ea cyclobenzaprine 10 mg tablet 10 mg PO TID PRN muscle spasm #30 10/14/22 tabs ergocalciferol (vitamin D2) 1,250 1,250 mcg PO QWEEK #8 caps 12/09/22 mcg (50,000 unit) capsule (Vitamin D2) lorazepam 0.5 mg tablet (Ativan) 0.5 - 1 mg (1 - 2 x 0.5 mg) PO BID 01/06/23 PRN anxiety #30 tabs albuterol sulfate 2.5 mg/3 mL 2.5 mg (3 mL) inhalation Q4-6H PRN 02/14/23 (0.083 %) solution for nebulization shortness of breath or wheezing #75 mL ondansetron HCl 4 mg tablet 4 mg PO Q4H PRN nausea and 02/14/23 vomiting #10 tabs triamcinolone acetonide 0.1 % 1 applic topical BID #30 grams 06/30/23 topical cream hydrocortisone 2.5 % topical cream 1 applic MD QID PRN pain #30 grams 09/21/23 with perineal applicator nystatin 100,000 unit/gram topical 1 applic topical BID PRN rash #30 09/21/23 powder grams nirmatrelvir 300 mg (150 mg See Rx Instructions PO .COMPLEX 10/22/23 x2)-ritonavir 100 mg tablet,dose #30 ea pack (Paxlovid) Allergies Allergy/AdvReac Type Severity Reaction Status Date / Time cefuroxime Allergy Severe Anaphylaxis Verified 09/21/23 11:35 erythromycin base Allergy Severe Verified 10/22/23 07:54 penicillin G Allergy Severe Anaphylaxis Verified 10/22/23 07:54 Quinolones Allergy Intermediate rash Verified 09/21/23 11:35 azithromycin Allergy Mild Hives Verified 09/21/23 11:35 codeine Allergy Unknown Unknown Verified 10/22/23 07:54 Sulfa Antibiotics Allergy Mild Rash Uncoded 09/21/23 11:35 EES Allergy Unknown Uncoded 09/21/23 11:35 Review of Systems Status of ROS: Reports: 10 or more systems reviewed and unremarkable except as noted in History and below [facility] Medical History BRBPR (bright red blood per rectum) ?K62.5 - Hemorrhage of anus and rectum (ICD-10) ELIZABETH (obstructive sleep apnea) ?G47.33 - Obstructive sleep apnea (adult) (pediatric) (ICD-10) History of uterine cancer (~02/2022) ?Z85.42 - Personal history of malignant neoplasm of other parts of uterus (ICD-10) Bradycardia ?R00.1 - Bradycardia, unspecified (ICD-10) Screening for hyperlipidemia ?Z13.220 - Encounter for screening for lipoid disorders (ICD-10) Snoring ?R06.83 - Snoring (ICD-10) Apnea ?R06.81 - Apnea, not elsewhere classified (ICD-10) Urinary urgency ?R39.15 - Urgency of urination (ICD-10) Vitamin D deficiency ?E55.9 - Vitamin D deficiency, unspecified (ICD-10) Linda's thyroiditis ?E06.3 - Autoimmune thyroiditis (ICD-10) Thyroid goiter ?E04.9 - Nontoxic goiter, unspecified (ICD-10) Thyroid nodule ?E04.1 - Nontoxic single thyroid nodule (ICD-10) Migraine with aura ?G43.109 - Migraine with aura, not intractable, without status migrainosus (ICD-10) Hemifacial spasm of left side of face ?G51.32 - Clonic hemifacial spasm, left (ICD-10) Former smoker ?Z87.891 - Personal history of nicotine dependence (ICD-10) Intertriginous dermatitis associated with moisture ?L30.4 - Erythema intertrigo (ICD-10) Psoriasis ?L40.9 - Psoriasis, unspecified (ICD-10) Eczema ?L30.9 - Dermatitis, unspecified (ICD-10) Pre-op exam ?Z01.818 - Encounter for other preprocedural examination (ICD-10) Asthma ?J45.909 - Unspecified asthma, uncomplicated (ICD-10) Cystitis ?N30.90 - Cystitis, unspecified without hematuria (ICD-10) Accessory navicular bone of foot ?Q74.2 - Other congenital malformations of lower limb(s), including pelvic girdle (ICD-10) History of radiation therapy ?Z92.3 - Personal history of irradiation (ICD-10) Bronchitis ?J40 - Bronchitis, not specified as acute or chronic (ICD-10) Wheezing ?R06.2 - Wheezing (ICD-10) Panic attack ?F41.0 - Panic disorder [episodic paroxysmal anxiety] (ICD-10) Anxiety ?F41.9 - Anxiety disorder, unspecified (ICD-10) Pre-diabetes ?R73.03 - Prediabetes (ICD-10) Post-menopausal bleeding ?N95.0 - Postmenopausal bleeding (ICD-10) Screening for malignant neoplasm of cervix ?Z12.4 - Encounter for screening for malignant neoplasm of cervix (ICD-10) History of multiple spontaneous abortions ?N96 - Recurrent loss (ICD-10) Surgical History H/O wrist surgery ?Z98.890 - Other specified postprocedural states (ICD-10) S/P RAUL-BSO ?Z90.710 - Acquired absence of both cervix and uterus (ICD-10) ?Z90.722 - Acquired absence of ovaries, bilateral (ICD-10) ?Z90.79 - Acquired absence of other genital organ(s) (ICD-10) Hx of total cystectomy (~1992) ?Z90.6 - Acquired absence of other parts of urinary tract (ICD-10) History of spinal fusion (~1998) ?Z98.1 - Arthrodesis status (ICD-10) History of kidney surgery (~1969) ?Z98.890 - Other specified postprocedural states (ICD-10) Family History Father Coronary artery disease Alcohol dependence Skin cancer High blood pressure Diabetes Brother Coronary artery disease Alcohol dependence Paternal Grandfather Coronary artery disease Skin cancer Paternal Grandmother Coronary artery disease Mother Stroke Thyroid disease High blood pressure Brother Alcohol dependence Sister Seizure disorder Maternal Grandmother Breast cancer Social History Narrative: Cis-gender, heterosexual woman Relationship status:[Single Education: Associates degree Occupation: [employer] Assistant [employer] Tobacco: : Former smoker quit 2013 E-cigarettes: No Alcohol: No Illicit/recreational drugs: No Safety concerns at home or work: No Dietary restriction(s): No Exercise: No Smoking Status: Never smoker Non-prescribed substance use: denies use Little interest or pleasure in doing things: more than half the days Feeling down, depressed, or hopeless: several days Exam Narrative: Exam Narrative: Vital signs as noted above. In general, an alert, nontoxic woman. She is overweight. Voice is normal. Head: Normocephalic, atraumatic. Eyes: Pupils are equal reactive. Extraocular movements are full. Conjunctivae are normal. ENT: Mucous membranes are moist. Throat is normal. Tonsils are absent. Neck: Supple without lymphadenopathy. Heart: Regular rate and rhythm. No murmur or rub. Lungs: Clear bilaterally. No increased work of breathing, crackles or wheezes. Abdomen: Soft and nontender. No organomegaly. Extremities: Well perfused. No edema. No calf tenderness. Pulses intact. Neurologic: Patient is alert and oriented to person and place. Speech is fluent. Face is symmetric. Moves all extremities equally. Affect: Normal. Skin: Warm and dry. Well perfused. Const: Vital Signs, click to edit/add: Vital Signs - 24 hr 10/22/23 07:49 10/22/23 08:40 Temperature 97.4 F L 97.4 F L Pulse Rate [Pulse Oximeter] 91 91 Respiratory Rate 20 20 Blood Pressure [Ri ght Forearm] 141/98 H 141/98 H Pulse Oximetry 95 Oxygen Delivery Me thod Room Air Documenting provider has reviewed patient's vital signs: yes Course Course ED Course: Patient really declines workup here, she does not feel she needs blood work or x-rays, says she really did not even want a COVID test. She just wants medications as described above. Will give her little prednisone to see if that helps her throat, otherwise for now supportive care, ibuprofen and Tylenol as needed. Paxlovid prescribed. No history of renal insufficiency, creatinine 0.5 in February. Vital Signs Vital signs: Initial Vital Signs Temperature 97.4 F L 10/22/23 07:49 Temperature Source Temporal Artery Scan 10/22/23 07:49 Pulse Rate 91 10/22/23 07:49 Respiratory Rate 20 10/22/23 07:49 Blood Pressure 141/98 H 10/22/23 07:49 Blood Pressure Mean 112 H 10/22/23 07:49 Blood Pressure Position Sitting 10/22/23 07:49 Pulse Oximetry 95 10/22/23 07:49 Oxygen Delivery Method Room Air 10/22/23 07:49 Vital Signs Temperature 97.4 F L 10/22/23 07:49 Pulse Rate 91 10/22/23 07:49 Respiratory Rate 20 10/22/23 07:49 Blood Pressure 141/98 H 10/22/23 07:49 Pulse Oximetry 95 10/22/23 07:49 Oxygen Delivery Method Room Air 10/22/23 07:49 Temperature 97.4 F L 10/22/23 08:40 Pulse Rate 91 10/22/23 08:40 Respiratory Rate 20 10/22/23 08:40 Blood Pressure 141/98 H 10/22/23 08:40 Pulse Oximetry 95 10/22/23 07:49 Oxygen Delivery Method Room Air 10/22/23 07:49 Discharge Plan Discharge Clinical Impression: COVID-19 Patient Disposition: Home, Self-Care Condition: Stable Instructions: COVID-19 (Coronavirus Disease 2019) (ED) Additional Instructions: Paxlovid and Prednisone as prescribed. Ibuprofen and/or Tylenol if needed for headache, sore throat, body aches etcetera. Maintain hydration. For significant respiratory difficulty or other worsening, return any time. Anticipate improvement over 7-10 days. See primary care as needed for failure to improve. Prescriptions: New Paxlovid 300 mg (150 mg x 2)-100 mg tablets,dose pack See Rx Instructions .ROUTE .COMPLEX Qty: 30 0RF Rx Instructions: take TWO 150 mg tablets of nirmatrelvir with ONE 100 mg tablet of ritonavir twice daily for 5 days No Action zolpidem [Ambien CR] 6.25 mg tablet,ext release multiphase 6.25 mg PO QHS PRN (Reason: insomnia) Qty: 30 0RF estradiol 0.01 % (0.1 mg/gram) cream vaginal cyclobenzaprine 10 mg tablet 10 mg PO TID PRN (Reason: muscle spasm) Qty: 30 3RF oxycodone 5 mg tablet 5 mg PO Q4H PRN (Reason: pain) lorazepam [Ativan] 0.5 mg tablet 0.5 - 1 mg PO BID MDD 1mg PRN (Reason: anxiety) Qty: 30 0RF ondansetron HCl 4 mg tablet 4 mg PO Q4H PRN (Reason: nausea and vomiting) Qty: 10 0RF Rx Instructions: 1 tablet every 4 hours as needed for nausea triamcinolone acetonide 0.1 % cream 1 applic topical BID Qty: 30 0RF hydrocortisone 2.5 % cream with perineal applicator 1 applic MD QID PRN (Reason: pain) Qty: 30 1RF nystatin 100,000 unit/gram powder 1 applic topical BID PRN (Reason: rash) Qty: 30 3RF clobetasol 0.05 % cream 1 applic topical QDAY omeprazole 20 mg capsule,delayed release(DR/EC) 20 mg PO DAILY diphenhydramine HCl 25 mg tablet 25 mg PO ONCE acetaminophen 500 mg tablet 500 mg PO PRN Rx Instructions: NO MORE THAN 4000 MG/DAY sumatriptan succinate 100 mg tablet PO .As Needed PRN Rx Instructions: ONE TAB AT ONSET OF HEADACHE, MAY REPEAT ONCE IN 2 HRS, MAX 200 MG/24 HRS albuterol sulfate [Ventolin HFA] 90 mcg/actuation HFA aerosol inhaler 2 puff inhalation Q6H PRN epinephrine 0.3 mg/0.3 mL auto-injector 0.3 mg IM .As Needed as needed PRN (Reason: anaphylaxis) Qty: 2 0RF ergocalciferol (vitamin D2) [Vitamin D2] 1,250 mcg (50,000 unit) capsule 1,250 mcg PO QWEEK Qty: 8 0RF albuterol sulfate 2.5 mg /3 mL (0.083 %) solution for nebulization 2.5 mg inhalation Q4-6H PRN (Reason: shortness of breath or wheezing) Qty: 75 0RF Follow Up/Referrals: Bertha Madison MD [Primary Care Provider] - Stand Alone Forms: [facility] Info Instructions
[2023-10-22 08:40] VITALS: BP 141/98; PULSE 91; RESP 20; TEMP 36.3
== END 2023-10-22 08:42 | disposition home or self-care (01) ==
LOC: ED 08:33
PROVIDERS: Emergency Provider Emergency Medicine; PCP Emergency Medicine
DX: U07.1 COVID-19 (principal)
CPT/HCPCS: 99283

== ENCOUNTER 2023-11-17 10:04 | Outpatient (CLI) | payer BC, SELFPAY | END 2023-11-17 10:05 | disposition home or self-care (01) | LOC: LKVREF 10:13 | PROVIDERS: PCP Emergency Medicine; Visit Provider Emergency Medicine | DX: E04.1 Nontoxic single thyroid nodule (principal); E04.9 Nontoxic goiter, unspecified | CPT/HCPCS: 80053; 80061; 82306; 84443 ==

== ENCOUNTER 2024-10-05 09:10 | Outpatient (CLI) | payer BC, SELFPAY | END 2024-10-05 09:11 | disposition home or self-care (01) | LOC: NFLDREF 10-09 03:20 | PROVIDERS: PCP Family Medicine; Referring Provider Emergency Medicine; Visit Provider Emergency Medicine | DX: E78.2 Mixed hyperlipidemia (principal); I10 Essential (primary) hypertension; E55.9 Vitamin D deficiency, unspecified; E06.3 Autoimmune thyroiditis; R73.03 Prediabetes | CPT/HCPCS: 80053; 80061; 82306; 84443 ==

== ENCOUNTER 2024-11-01 08:14 | Outpatient (CLI) | payer BC, SELFPAY | END 2024-11-01 08:15 | disposition home or self-care (01) | LOC: NFLDREF 11-05 03:43 | PROVIDERS: PCP Family Medicine; Referring Provider Family Medicine | DX: R35.0 Frequency of micturition (principal) | CPT/HCPCS: 87086 ==